=== PATIENT | female | born 1970 | race Asian ===

== ENCOUNTER 2021-02-12 09:59 | Emergency (ER) | payer OTHER ==
[~2021-02-12] VITALS: Ht 167.6 cm; Wt 68.2 kg
[2021-02-12 11:35] LABS: BASOPHILS % (AUTO) 0.4 % (0.0-2.0); EOSINOPHILS % (AUTO) 2.8 % (1.0-6.0); HEMATOCRIT 40.7 % (36-46); HEMOGLOBIN 13.3 g/dL (12.0-16.0); LYMPHOCYTES % (AUTO) 37.3 % (22.0-44.0); MEAN CORPUSCULAR HEMOGLOBIN 28.3 pg (26.0-34.0); MEAN CORPUSCULAR HGB CONC 32.7 G/dL (31.0-37.0); MEAN CORPUSCULAR VOLUME 87 fL (80-100); MONOCYTES # (AUTO) 0.3 K/uL (0.1-1.0); MONOCYTES % (AUTO) 5.2 % (2.0-9.0); NEUTROPHILS # (AUTO) 2.8 K/uL (1.8-7.7); NEUTROPHILS % (AUTO) 54.3 % (40.0-70.0); PLATELET COUNT (AUTO) 250 K/uL (150-450); RED CELL DISTRIBUTION WIDTH 13.2 % (11.5-14.5)
[2021-02-12 11:45] LABS: ANION GAP 5 mmol/L (8-16); CALCIUM, TOTAL 9.3 mg/dL (8.8-10.5); CARBON DIOXIDE 29 mmol/L (22-29); CHLORIDE 106 mmol/L (98-107); CREATININE 0.68 mg/dL (0.60-1.30); GLOMERULAR FILTR. RATE CALC > 60 mL/min (>60); GLUCOSE,RANDOM 96 mg/dL (70-110); POTASSIUM 4.6 mmol/L (3.5-5.1); SODIUM SERUM 140 mmol/L (136-145); UREA NITROGEN, BLOOD 15 mg/dL (7-18)
[2021-02-12 11:55] LABS: ALANINE AMINOTRANSFERASE 33 U/L (12-78); ALBUMIN 3.8 g/dL (3.4-5.0); ALKALINE PHOSPHATASE 67 U/L (46-116); ASPARTATE AMINOTRANSFERASE 20 U/L (15-37); BILIRUBIN,TOTAL 0.3 mg/dL (0.1-1.0); TOTAL PROTEIN, SERUM 7.9 g/dL (6.4-8.2)
[2021-02-12 11:57] LABS: B-TYPE NATRIURETIC PEPTIDE 54 pg/mL (0-100)
[2021-02-12 12:13] LABS: HCG,QUANTITATIVE 1 mIU/mL (0-6)
[2021-02-12] MEDS ORDERED: ONDANSETRON HCL 4 MG TABLET PO ONE (12:45)
[2021-02-12] MEDS ORDERED: MECLIZINE HCL 25 MG TABLET PO ONE (12:45)
[2021-02-12] MEDS ORDERED: ACETAMINOPHEN 500 MG TABLET PO ONE (12:45)
[2021-02-12 13:02] VITALS: BP 112/74
== END 2021-02-12 14:07 | disposition home or self-care (01) ==
LOC: EMS 10:03
DX: R42 Dizziness and giddiness (principal); R51.9 Headache, unspecified
CPT/HCPCS: 70450; 80053; 83880; 84484; 84702; 85025; 93005; 99285; Q0162

== ENCOUNTER 2021-08-05 15:43 | Emergency (ER) | payer OTHER ==
[~2021-08-05] VITALS: Ht 162.6 cm; Wt 65.9 kg
[2021-08-05 15:52] VITALS: BP 112/84
[2021-08-05 17:06] LABS: COVID AG,FIA SOURCE NASOPHARYNGEAL
[2021-08-05 17:36] LABS: INFLUENZA TYPE A NEGATIVE FOR TYPE A (NEGATIVE); INFLUENZA TYPE B NEGATIVE FOR TYPE B (NEGATIVE)
== END 2021-08-05 19:02 | disposition home or self-care (01) ==
LOC: EMS 15:45
DX: J06.9 Acute upper respiratory infection, unspecified (principal); Z20.822 Contact with and (suspected) exposure to COVID-19
CPT/HCPCS: 87804; 99283

== ENCOUNTER 2024-01-31 09:23 | Emergency (ER) | payer OTHER ==
[~2024-01-31] VITALS: Ht 162.6 cm; Wt 52.7 kg
[2024-01-31 09:32] VITALS: TEMP 100.1
[2024-01-31] MEDS ORDERED: OMEP20 PO ×2 (09:35→10:27)
[2024-01-31 09:42] LABS: COVID AG,FIA SOURCE NASAL SWAB
[2024-01-31] MEDS: IBUPROFEN 600 MG TABLET PO ONE (09:51)
[2024-01-31] MEDS: BENZONATATE 100 MG CAPSULE PO ONE (09:51)
[2024-01-31] MEDS: MAG HYDROX/ALUMINUM HYD/SIMETH 30 ML SUSPENSION UDCUP PO ONE (09:51)
[2024-01-31] MEDS: FAMOTIDINE 20 MG TABLET PO ONE (09:51)
[2024-01-31 10:09] LABS: INFLUENZA TYPE A NEGATIVE FOR TYPE A (NEGATIVE); INFLUENZA TYPE B NEGATIVE FOR TYPE B (NEGATIVE)
[2024-01-31 10:10] LABS: SARS-COV2 (COVID) ANTIGEN,FIA Positive (Negative)
[2024-01-31] MEDS ORDERED: BENZ-227 PO (10:27)
[2024-01-31] MEDS ORDERED: IBUP-1506 PO (10:27)
[2024-01-31] MEDS ORDERED: ACET-2247 PO (10:27)
[2024-01-31 10:30] VITALS: BP 115/66; PULSE 85; RESP 16
== END 2024-01-31 10:40 | disposition home or self-care (01) ==
LOC: EMS 09:29
DX: U07.1 COVID-19 (principal); K21.9 Gastro-esophageal reflux disease without esophagitis
CPT/HCPCS: 87804; 99283; 99284